=== PATIENT | female | born 1955 | race African-American/Black ===

== ENCOUNTER 2020-10-24 16:54 | Inpatient (IN) | payer OTHER ==
[~2020-10-24] VITALS: Ht 165.1 cm; Wt 66.7 kg
[2020-10-24 17:56] LABS: HEMATOCRIT. 39.9 % (36.0-48.0); HEMOGLOBIN. 11.9 g/dL (12.0-16.0); MEAN CORPUSCULAR HEMOGLOBIN 21.9 pg (28.0-32.0); MEAN CORPUSCULAR VOLUME 73.2 fL (81.0-99.0); PLATELET 412 x1000/uL (130-400); RED BLOOD CELL COUNT 5.46 mill/uL (4.2-5.4); RED CELL DISTRIBUTION WIDTH 15.4 % (11.6-14.6)
[2020-10-24 18:04] LABS: CHLORIDE 114 mEq/L (98-107)
[2020-10-24] MEDS ORDERED: LEVOFLOXACIN 500MG PREMIX 100 ML IV ONE (18:15)
[2020-10-24 18:47] LABS: PLATELET ESTIMATE NORMAL
[2020-10-24 18:58] LABS: ETHANOL BLOOD < 10 mg/dL
[2020-10-24 19:00] LABS: BETA HYDROXYBUTYRATE 8.9 mMol/L (0.0-0.3)
[2020-10-24] MEDS ORDERED: KCL 10MEQ/50ML PREMIX 50 ML IV ONE (19:45)
[2020-10-24] MEDS ORDERED: SODIUM CHLORIDE 0.9% 1,000 ML IV STA (19:45)
[2020-10-24] MEDS ORDERED: INSULIN REGULAR (DRIP) 100 UNITS in SODIUM CHLORIDE 0.9% 100 ML IV ONE (19:45)
[2020-10-24 20:00] LABS: *AMPHETAMINES SCREEN URINE NEGATIVE (NEGATIVE); *BARBITURATES SCREEN URINE NEGATIVE (NEGATIVE); *BENZODIAZEPINES SCREEN URINE NEGATIVE (NEGATIVE); *COCAINE SCREEN URINE NEGATIVE (NEGATIVE); CANNABINOID URINE SCREEN NEGATIVE (NEGATIVE); METHADONE URINE SCREEN NEGATIVE (NEGATIVE); OPIATES URINE SCREEN NEGATIVE (NEGATIVE); PHENCYCLIDINE URINE SCREEN NEGATIVE (NEGATIVE)
[2020-10-24] MEDS ORDERED: VANCOMYCIN 1 G PREMIX 200 ML IV ONE (20:00)
[2020-10-24] MEDS ORDERED: DEXTROSE 50% WATER 50ML SYRINGE IV PRN (20:00)
[2020-10-24] MEDS: BLOOD SUGAR DIAGNOSTIC STRIP TEST SCH ×4 (20:46→23:00)
[2020-10-24 23:22] LABS: PHOSPHORUS 3.5 mg/dL (2.5-4.9)
[2020-10-25] VITALS (55 sets, daily range): BP systolic 110–196; BP diastolic 39–126
[2020-10-25] MEDS ORDERED: GUAIFENESIN 200MG/10ML SUGAR FREE UDC PO PRN
[2020-10-25] MEDS ORDERED: INSULIN REGULAR (DRIP) 100 UNITS in SODIUM CHLORIDE 0.9% 100 ML IV SCH
[2020-10-25] MEDS ORDERED: NA PHOS,M-B/NA PHOS,DI-BA ENEMA 118ML PR PRN
[2020-10-25] MEDS ORDERED: DIPHENHYDRAMINE 50MG/ML VIAL IV PRN
[2020-10-25] MEDS ORDERED: CLONIDINE 0.1MG TABLET PO PRN
[2020-10-25] MEDS ORDERED: ONDANSETRON HCL 4MG/2ML INJ IV PRN
[2020-10-25] MEDS ORDERED: MORPHINE SULFATE 2 MG/ML CPJ (NOT FOR IM USE) IV PRN
[2020-10-25] MEDS ORDERED: HYDROCODONE/ACETAMINOPHEN 5/325MG TABLET PO PRN
[2020-10-25] MEDS ORDERED: DOCUSATE SODIUM 100MG CAPSULE PO PRN
[2020-10-25] MEDS ORDERED: LORAZEPAM 2MG/ML CPJ IV PRN
[2020-10-25] MEDS ORDERED: MAGNESIUM/ALUMINUM HYDROXIDE/SIMETHICONE 30ML UDC PO PRN
[2020-10-25] MEDS ORDERED: NALOXONE HCL 0.4MG/ML VIAL IV PRN (00:30)
[2020-10-25] MEDS: BLOOD SUGAR DIAGNOSTIC STRIP TEST SCH ×15 (01:00→23:18)
[2020-10-25 01:22] LABS: PHOSPHORUS 2.9 mg/dL (2.5-4.9)
[2020-10-25 05:34] LABS: HEMATOCRIT. 37.7 % (36.0-48.0); HEMOGLOBIN. 11.8 g/dL (12.0-16.0); MEAN CORPUSCULAR HEMOGLOBIN 21.7 pg (28.0-32.0); MEAN CORPUSCULAR VOLUME 69.1 fL (81.0-99.0); MEAN PLATELET VOLUME 8.9 fl (7.4-10.4); PLATELET 347 x1000/uL (130-400); RED BLOOD CELL COUNT 5.45 mill/uL (4.2-5.4); RED CELL DISTRIBUTION WIDTH 14.9 % (11.6-14.6)
[2020-10-25 05:39] LABS: CHLORIDE 128 mEq/L (98-107)
[2020-10-25 05:46] LABS: LDL CHOLESTEROL 100 mg/dL (5-100)
[2020-10-25] MEDS: INSULIN REGULAR (DRIP) 100 UNITS in SODIUM CHLORIDE 0.9% 99 ML IV SCH ×2 (05:46→09:56)
[2020-10-25 05:48] LABS: T4 FREE 1.37 ng/dL (0.76-1.46)
[2020-10-25 05:50] LABS: HDL CHOLESTEROL 39 mg/dL (40-59)
[2020-10-25] MEDS: SODIUM CHLORIDE 0.45% 1,000 ML IV SCH ×3 (08:00→10:00)
[2020-10-25] MEDS: ASPIRIN 81MG EC TABLET PO SCH (08:35)
[2020-10-25 08:46] LABS: BG BASE EXCESS -3.3 mmol/L (-2.0-2.0); BG CARBOXYHEMOGLOBIN 0.3 % (0.5-1.5); BG DEOXYHEMOGLOBIN 8.7 % (0.0-5.0); BG FRACTION INSPIRED OXYGEN 100; BG HCO3 ACT 19.8 mmol/L (22.0-26.0); BG METHEMOGLOBIN 0.2 % (0.0-1.5); BG OXYGEN SATURATION 91.3 % (92.0-98.5); BG OXYHEMOGLOBIN 90.8 % (94.0-97.0); BG PCO2 30.2 mmHg (35.0-45.0); BG PH 7.434 (7.350-7.450); BG PO2 59.4 mmHg (75.0-100.0); BG SAMPLE SITE RIGHT RADIAL; BG TOTAL HEMOGLOBIN 13.4 g/dL (12.0-18.0); BG VENT MODE MASK - NRB
[2020-10-25] MEDS: ENOXAPARIN 30MG/0.3ML SYR SUBCUT SCH (09:59)
[2020-10-25 11:10] LABS: CREATINE KINASE 186 IU/L (26-192)
[2020-10-25 11:11] LABS: CREATINE KINASE MB FRACTION < 1.0 ng/mL (0.5-3.6)
[2020-10-25] MEDS ORDERED: INSU100I28 SQ (12:42)
[2020-10-25] MEDS ORDERED: SIMV5TAB58 PO (12:43)
[2020-10-25] MEDS ORDERED: DEXT 5%/0.45% NACL 1000ML 1,000 ML IV SCH (13:00)
[2020-10-25] MEDS: HYDRALAZINE 20MG/ML VIAL IV PRN (13:40)
[2020-10-25] MEDS: INSULIN GLARGINE UD 100 UNITS/ML SYR SUBCUT SCH (14:59)
[2020-10-25] MEDS ORDERED: BLOOD SUGAR DIAGNOSTIC STRIP TEST SCH (16:30)
[2020-10-25] MEDS ORDERED: METOPROLOL TARTRATE 5MG/5ML VIAL IV NR (16:30)
[2020-10-25] MEDS ORDERED: INSULIN LISPRO 100 UNITS/ML SUBCUT SCH (17:00)
[2020-10-25] MEDS: DEXAMETHASONE 10 MG/ML VIAL IV SCH (17:06)
[2020-10-25 17:12] LABS: PLATELET ESTIMATE NORMAL
[2020-10-25 17:32] LABS: BG CARBOXYHEMOGLOBIN 0.3 % (0.5-1.5); BG DEOXYHEMOGLOBIN 6.6 % (0.0-5.0); BG FRACTION INSPIRED OXYGEN 100; BG METHEMOGLOBIN 0.2 % (0.0-1.5); BG OXYGEN SATURATION 93.4 % (92.0-98.5); BG OXYHEMOGLOBIN 92.9 % (94.0-97.0); BG PCO2 30.7 mmHg (35.0-45.0); BG PH 7.307 (7.350-7.450); BG PO2 72.9 mmHg (75.0-100.0); BG SAMPLE SITE RIGHT BRACHIAL; BG TOTAL HEMOGLOBIN 13.1 g/dL (12.0-18.0); BG TOTAL RESPIRATORY RATE 40 b/min; BG VENT MODE MASK - BIPAP
[2020-10-25] MEDS ORDERED: LEVOFLOXACIN 250MG PREMIX 50 ML IV SCH (18:00)
[2020-10-25] MEDS ORDERED: SODIUM BICARBONATE 8.4% 1 MEQ/ML 50ML SYR IV NR (18:09)
[2020-10-25] MEDS: PIPERACILLIN/TAZOBACTAM 2.25 G in DEXTROSE 5% WATER 50 ML IV SCH ×2 (18:18→23:20)
[2020-10-25 18:28] LABS: INR 1.1; PROTHROMBIN TIME 11.6 sec (9.6-11.0)
[2020-10-25 18:33] LABS: D-DIMER > 35.20 mg/L FEU (<0.50)
[2020-10-25] MEDS ORDERED: SODIUM CHLORIDE 0.45% 1,000 ML IV SCH (19:00)
[2020-10-25 19:20] LABS: CLARITY URINE CLOUDY (CLEAR); COLOR URINE YELLOW (YELLOW); KETONES URINE NEGATIVE (NEGATIVE); LEUKOCYTE ESTERASE URINE NEGATIVE (NEGATIVE); NITRITE URINE NEGATIVE (NEGATIVE); OCCULT BLOOD URINE 2+ (NEGATIVE); PROTEIN URINE 2+ (NEGATIVE); SPECIFIC GRAVITY URINE 1.019 (1.005-1.030); UROBILINOGEN URINE 0.2 E.U./dL (0.2-1.0)
[2020-10-25] MEDS: INSULIN LISPRO 100 UNITS/ML SUBCUT SCH ×2 (19:53→23:21)
[2020-10-25] MEDS ORDERED: VANCOMYCIN 500 MG PREMIX 100 ML IV SCH (20:00)
[2020-10-25 20:40] LABS: HEPATITIS B SURFACE ANTIGEN NEGATIVE
[2020-10-25] MEDS ORDERED: SODIUM BICARBONATE 100 MEQ in DEXTROSE 5% WATER 1,000 ML IV SCH (21:30)
[2020-10-26] VITALS (74 sets, daily range): BP systolic 88–175; BP diastolic 54–109
[2020-10-26] MEDS ORDERED: VANCOMYCIN 500 MG PREMIX 100 ML IV NR (01:00)
[2020-10-26] MEDS: BLOOD SUGAR DIAGNOSTIC STRIP TEST SCH ×6 (03:47→23:28)
[2020-10-26] MEDS: INSULIN LISPRO 100 UNITS/ML SUBCUT SCH ×6 (03:50→23:26)
[2020-10-26] MEDS: PIPERACILLIN/TAZOBACTAM 2.25 G in DEXTROSE 5% WATER 50 ML IV SCH ×4 (05:08→23:25)
[2020-10-26 06:50] LABS: HEMATOCRIT. 35.4 % (36.0-48.0); HEMOGLOBIN. 11.1 g/dL (12.0-16.0); MEAN CORPUSCULAR HEMOGLOBIN 21.5 pg (28.0-32.0); MEAN CORPUSCULAR VOLUME 68.9 fL (81.0-99.0); RED BLOOD CELL COUNT 5.14 mill/uL (4.2-5.4); RED CELL DISTRIBUTION WIDTH 14.4 % (11.6-14.6)
[2020-10-26] MEDS: DEXAMETHASONE 10 MG/ML VIAL IV SCH (09:33)
[2020-10-26] MEDS: ENOXAPARIN 30MG/0.3ML SYR SUBCUT SCH (09:33)
[2020-10-26] MEDS: DEXTROSE 5% WATER 1,000 ML IV SCH ×2 (09:34→23:28)
[2020-10-26] MEDS: ASPIRIN 81MG EC TABLET PO SCH (09:58)
[2020-10-26] MEDS: INSULIN GLARGINE UD 100 UNITS/ML SYR SUBCUT SCH ×2 (09:59→23:26)
[2020-10-26 12:14] LABS: BG CARBOXYHEMOGLOBIN 0.3 % (0.5-1.5); BG DEOXYHEMOGLOBIN 1.4 % (0.0-5.0); BG FRACTION INSPIRED OXYGEN 100; BG HCO3 ACT 23.5 mmol/L (22.0-26.0); BG METHEMOGLOBIN 0.1 % (0.0-1.5); BG OXYGEN SATURATION 98.6 % (92.0-98.5); BG OXYHEMOGLOBIN 98.2 % (94.0-97.0); BG PCO2 30.5 mmHg (35.0-45.0); BG PH 7.504 (7.350-7.450); BG PO2 148.5 mmHg (75.0-100.0); BG SAMPLE SITE RIGHT RADIAL; BG VENT MODE MASK - BIPAP
[2020-10-26 14:05] LABS: PLATELET ESTIMATE NORMAL
[2020-10-26 14:06] LABS: MEAN PLATELET VOLUME 9.7 fl (7.4-10.4); PLATELET 267 x1000/uL (130-400)
[2020-10-26] MEDS ORDERED: IOHEXOL-350 100 ML BOTTLE ONE (22:52)
[2020-10-27] VITALS (64 sets, daily range): BP systolic 109–172; BP diastolic 49–107
[2020-10-27] MEDS ORDERED: ENOXAPARIN 30MG/0.3ML SYR SUBCUT NR
[2020-10-27] MEDS: INSULIN LISPRO 100 UNITS/ML SUBCUT SCH ×5 (04:16→20:56)
[2020-10-27] MEDS: BLOOD SUGAR DIAGNOSTIC STRIP TEST SCH ×5 (04:16→20:46)
[2020-10-27 05:36] LABS: HEMATOCRIT. 33.6 % (36.0-48.0); HEMOGLOBIN. 10.5 g/dL (12.0-16.0); MEAN CORPUSCULAR HEMOGLOBIN 21.6 pg (28.0-32.0); MEAN PLATELET VOLUME 10.5 fl (7.4-10.4); PLATELET 228 x1000/uL (130-400); RED BLOOD CELL COUNT 4.86 mill/uL (4.2-5.4); RED CELL DISTRIBUTION WIDTH 14.7 % (11.6-14.6)
[2020-10-27 05:45] LABS: PHOSPHORUS 2.2 mg/dL (2.5-4.9)
[2020-10-27] MEDS: PIPERACILLIN/TAZOBACTAM 2.25 G in DEXTROSE 5% WATER 50 ML IV SCH ×3 (05:58→17:02)
[2020-10-27] MEDS ORDERED: VANCOMYCIN 750 MG PREMIX 150 ML IV NR (06:00)
[2020-10-27] MEDS: ENOXAPARIN 60MG/0.6ML SYR SUBCUT SCH (08:14)
[2020-10-27] MEDS: DEXAMETHASONE 10 MG/ML VIAL IV SCH (08:14)
[2020-10-27] MEDS: ASPIRIN 81MG EC TABLET PO SCH (08:14)
[2020-10-27 08:41] LABS: BG BASE EXCESS 1.7 mmol/L (-2.0-2.0); BG CARBOXYHEMOGLOBIN 0.3 % (0.5-1.5); BG DEOXYHEMOGLOBIN 9.6 % (0.0-5.0); BG FRACTION INSPIRED OXYGEN 100; BG HCO3 ACT 25.3 mmol/L (22.0-26.0); BG METHEMOGLOBIN 0.1 % (0.0-1.5); BG OXYGEN SATURATION 90.4 % (92.0-98.5); BG PCO2 36.1 mmHg (35.0-45.0); BG PH 7.463 (7.350-7.450); BG PO2 56.2 mmHg (75.0-100.0); BG SAMPLE SITE RIGHT BRACHIAL; BG TOTAL HEMOGLOBIN 11.5 g/dL (12.0-18.0); BG VENT MODE MASK - NRB
[2020-10-27] MEDS ORDERED: POTASSIUM PHOS,M-BASIC-D-BASIC 20 MMOL in DEXT 5% WATER 243.3333 ML IV SCH (09:00)
[2020-10-27] MEDS: INSULIN GLARGINE UD 100 UNITS/ML SYR SUBCUT SCH ×2 (10:01→22:50)
[2020-10-27] MEDS: DEXTROSE 5% WATER 1,000 ML IV SCH (11:53)
[2020-10-27] MEDS: LACTULOSE 20G/30ML UDC PO SCH ×2 (12:55→22:49)
[2020-10-27 20:15] LABS: PLATELET ESTIMATE NORMAL
[2020-10-28] VITALS (40 sets, daily range): BP systolic 109–157; BP diastolic 52–86
[2020-10-28] MEDS: BLOOD SUGAR DIAGNOSTIC STRIP TEST SCH ×6 (00:20→20:39)
[2020-10-28] MEDS: INSULIN LISPRO 100 UNITS/ML SUBCUT SCH ×6 (00:32→21:10)
[2020-10-28] MEDS: PIPERACILLIN/TAZOBACTAM 2.25 G in DEXTROSE 5% WATER 50 ML IV SCH ×4 (00:32→18:06)
[2020-10-28] MEDS: DEXTROSE 5% WATER 1,000 ML IV SCH ×3 (00:41→21:09)
[2020-10-28 06:03] LABS: HEMATOCRIT. 33.9 % (36.0-48.0); HEMOGLOBIN. 10.6 g/dL (12.0-16.0); MEAN CORPUSCULAR HEMOGLOBIN 21.7 pg (28.0-32.0); MEAN PLATELET VOLUME 10.7 fl (7.4-10.4); PHOSPHORUS 2.5 mg/dL (2.5-4.9); PLATELET 208 x1000/uL (130-400); RED BLOOD CELL COUNT 4.91 mill/uL (4.2-5.4); RED CELL DISTRIBUTION WIDTH 14.4 % (11.6-14.6)
[2020-10-28 08:05] LABS: BG BASE EXCESS 2.8 mmol/L (-2.0-2.0); BG CARBOXYHEMOGLOBIN 0.3 % (0.5-1.5); BG DEOXYHEMOGLOBIN 5.2 % (0.0-5.0); BG HCO3 ACT 25.7 mmol/L (22.0-26.0); BG METHEMOGLOBIN 0.3 % (0.0-1.5); BG OXYGEN SATURATION 94.8 % (92.0-98.5); BG OXYHEMOGLOBIN 94.2 % (94.0-97.0); BG PCO2 33.7 mmHg (35.0-45.0); BG PH 7.501 (7.350-7.450); BG PO2 66.8 mmHg (75.0-100.0); BG SAMPLE SITE RIGHT RADIAL; BG VENT MODE MASK - NRB
[2020-10-28 08:54] LABS: PLATELET ESTIMATE NORMAL
[2020-10-28] MEDS: LACTULOSE 20G/30ML UDC PO SCH ×2 (09:00→21:09)
[2020-10-28] MEDS: ASPIRIN 81MG EC TABLET PO SCH (09:16)
[2020-10-28] MEDS: ENOXAPARIN 60MG/0.6ML SYR SUBCUT SCH (09:16)
[2020-10-28] MEDS: DEXAMETHASONE 10 MG/ML VIAL IV SCH (09:16)
[2020-10-28] MEDS: INSULIN GLARGINE UD 100 UNITS/ML SYR SUBCUT SCH ×2 (09:17→21:09)
[2020-10-28] MEDS: VANCOMYCIN 750 MG PREMIX 150 ML IV SCH (09:37)
[2020-10-28] MEDS ORDERED: DESMOPRESSIN ACETATE IVPB 2 MCG in SODIUM CHLORIDE 0.9% 50 ML IV ONE (11:45)
[2020-10-28] MEDS ORDERED: DESMOPRESSIN ACETATE 4MCG/ML AMP IV NR (14:00)
[2020-10-28] MEDS: IPRATROPIUM/ALBUTEROL 0.5-3(2.5)MG/3ML NEB HHN SCH ×2 (15:11→21:20)
[2020-10-29] VITALS (48 sets, daily range): BP systolic 87–157; BP diastolic 39–89
[2020-10-29] MEDS: PIPERACILLIN/TAZOBACTAM 2.25 G in DEXTROSE 5% WATER 50 ML IV SCH ×4 (00:13→18:34)
[2020-10-29] MEDS: INSULIN LISPRO 100 UNITS/ML SUBCUT SCH ×6 (00:14→21:04)
[2020-10-29] MEDS: IPRATROPIUM/ALBUTEROL 0.5-3(2.5)MG/3ML NEB HHN SCH ×5 (01:55→20:26)
[2020-10-29] MEDS: BLOOD SUGAR DIAGNOSTIC STRIP TEST SCH ×6 (04:00→20:57)
[2020-10-29 05:49] LABS: HEMATOCRIT. 31.7 % (36.0-48.0); HEMOGLOBIN. 9.7 g/dL (12.0-16.0); MEAN CORPUSCULAR HEMOGLOBIN 21.1 pg (28.0-32.0); MEAN CORPUSCULAR VOLUME 69.2 fL (81.0-99.0); MEAN PLATELET VOLUME 10.6 fl (7.4-10.4); PLATELET 172 x1000/uL (130-400); RED BLOOD CELL COUNT 4.58 mill/uL (4.2-5.4); RED CELL DISTRIBUTION WIDTH 14.4 % (11.6-14.6)
[2020-10-29] MEDS: DEXTROSE 5% WATER 1,000 ML IV SCH ×3 (07:26→20:27)
[2020-10-29] MEDS: ASPIRIN 81MG EC TABLET PO SCH (08:05)
[2020-10-29] MEDS: DEXAMETHASONE 10 MG/ML VIAL IV SCH (08:05)
[2020-10-29] MEDS: ENOXAPARIN 60MG/0.6ML SYR SUBCUT SCH (08:05)
[2020-10-29] MEDS: LACTULOSE 20G/30ML UDC PO SCH ×2 (08:06→20:57)
[2020-10-29] MEDS ORDERED: POTASSIUM CHLORIDE 20MEQ TABLET SR PO NR (09:45)
[2020-10-29 09:50] LABS: BG BASE EXCESS 1.4 mmol/L (-2.0-2.0); BG FRACTION INSPIRED OXYGEN 100; BG PCO2 36.4 mmHg (35.0-45.0); BG PH 7.455 (7.350-7.450); BG PO2 105.2 mmHg (75.0-100.0); BG SAMPLE SITE RIGHT RADIAL; BG VENT MODE MASK - NRB
[2020-10-29] MEDS: VANCOMYCIN 750 MG PREMIX 150 ML IV SCH (10:02)
[2020-10-29] MEDS: INSULIN GLARGINE UD 100 UNITS/ML SYR SUBCUT SCH ×2 (10:03→22:07)
[2020-10-29] MEDS ORDERED: INSULIN GLARGINE UD 100 UNITS/ML SYR SUBCUT NR (14:30)
[2020-10-29 22:42] LABS: PLATELET ESTIMATE NORMAL
[2020-10-30] VITALS (47 sets, daily range): BP systolic 83–155; BP diastolic 28–97
[2020-10-30] MEDS: BLOOD SUGAR DIAGNOSTIC STRIP TEST SCH ×6 (00:24→20:00)
[2020-10-30] MEDS: PIPERACILLIN/TAZOBACTAM 2.25 G in DEXTROSE 5% WATER 50 ML IV SCH ×3 (00:35→12:35)
[2020-10-30] MEDS: INSULIN LISPRO 100 UNITS/ML SUBCUT SCH ×6 (00:36→21:28)
[2020-10-30] MEDS: IPRATROPIUM/ALBUTEROL 0.5-3(2.5)MG/3ML NEB HHN SCH ×4 (00:43→18:00)
[2020-10-30] MEDS: DEXTROSE 5% WATER 1,000 ML IV SCH ×2 (03:03→16:14)
[2020-10-30] MEDS: IVERMECTIN 3 MG TABLET PO SCH (04:35)
[2020-10-30 06:17] LABS: HEMATOCRIT. 28.9 % (36.0-48.0); HEMOGLOBIN. 9.1 g/dL (12.0-16.0); MEAN CORPUSCULAR HEMOGLOBIN 21.7 pg (28.0-32.0); MEAN CORPUSCULAR VOLUME 68.8 fL (81.0-99.0); MEAN PLATELET VOLUME 10.6 fl (7.4-10.4); PHOSPHORUS 2.6 mg/dL (2.5-4.9); PLATELET 140 x1000/uL (130-400); RED CELL DISTRIBUTION WIDTH 14.3 % (11.6-14.6)
[2020-10-30 07:36] LABS: BG BASE EXCESS 2.6 mmol/L (-2.0-2.0); BG CARBOXYHEMOGLOBIN 0.3 % (0.5-1.5); BG DEOXYHEMOGLOBIN 9.9 % (0.0-5.0); BG HCO3 ACT 25.4 mmol/L (22.0-26.0); BG METHEMOGLOBIN 0.2 % (0.0-1.5); BG OXYGEN SATURATION 90.1 % (92.0-98.5); BG OXYHEMOGLOBIN 89.6 % (94.0-97.0); BG PCO2 32.6 mmHg (35.0-45.0); BG PH 7.509 (7.350-7.450); BG PO2 51.2 mmHg (75.0-100.0); BG SAMPLE SITE RIGHT RADIAL; BG TOTAL HEMOGLOBIN 10.7 g/dL (12.0-18.0); BG VENT MODE MASK - NRB
[2020-10-30] MEDS: LACTULOSE 20G/30ML UDC PO SCH ×2 (08:30→21:00)
[2020-10-30] MEDS: DEXAMETHASONE 10 MG/ML VIAL IV SCH (08:30)
[2020-10-30] MEDS: ENOXAPARIN 60MG/0.6ML SYR SUBCUT SCH (08:31)
[2020-10-30] MEDS: ASPIRIN 81MG EC TABLET PO SCH (08:31)
[2020-10-30] MEDS: VANCOMYCIN 750 MG PREMIX 150 ML IV SCH (10:24)
[2020-10-30] MEDS: INSULIN GLARGINE UD 100 UNITS/ML SYR SUBCUT SCH ×2 (10:25→21:28)
[2020-10-30 11:02] LABS: PLATELET ESTIMATE NORMAL
[2020-10-30] MEDS ORDERED: FUROSEMIDE 40MG/4ML VIAL IVP NR (16:15)
[2020-10-31] VITALS (44 sets, daily range): BP systolic 81–154; BP diastolic 25–91
[2020-10-31] MEDS: BLOOD SUGAR DIAGNOSTIC STRIP TEST SCH ×6 (00:08→20:26)
[2020-10-31] MEDS: IPRATROPIUM/ALBUTEROL 0.5-3(2.5)MG/3ML NEB HHN SCH ×3 (01:12→20:26)
[2020-10-31] MEDS: INSULIN LISPRO 100 UNITS/ML SUBCUT SCH ×6 (04:00→20:25)
[2020-10-31 05:48] LABS: HEMOGLOBIN. 9.1 g/dL (12.0-16.0); MEAN CORPUSCULAR HEMOGLOBIN 21.5 pg (28.0-32.0); MEAN CORPUSCULAR VOLUME 68.3 fL (81.0-99.0); MEAN PLATELET VOLUME 11.5 fl (7.4-10.4); PLATELET 150 x1000/uL (130-400); RED BLOOD CELL COUNT 4.24 mill/uL (4.2-5.4); RED CELL DISTRIBUTION WIDTH 14.3 % (11.6-14.6)
[2020-10-31 07:46] LABS: BG BASE EXCESS 2.3 mmol/L (-2.0-2.0); BG CARBOXYHEMOGLOBIN 0.3 % (0.5-1.5); BG DEOXYHEMOGLOBIN 5.9 % (0.0-5.0); BG HCO3 ACT 24.9 mmol/L (22.0-26.0); BG METHEMOGLOBIN 0.3 % (0.0-1.5); BG OXYGEN SATURATION 94.1 % (92.0-98.5); BG OXYHEMOGLOBIN 93.5 % (94.0-97.0); BG PCO2 31.2 mmHg (35.0-45.0); BG PO2 63.5 mmHg (75.0-100.0); BG SAMPLE SITE RIGHT RADIAL; BG TOTAL HEMOGLOBIN 9.4 g/dL (12.0-18.0); BG VENT MODE MASK - NRB
[2020-10-31] MEDS: ASPIRIN 81MG EC TABLET PO SCH (08:09)
[2020-10-31] MEDS: DEXAMETHASONE 10 MG/ML VIAL IV SCH (08:09)
[2020-10-31] MEDS: ENOXAPARIN 60MG/0.6ML SYR SUBCUT SCH (08:09)
[2020-10-31] MEDS: DEXTROSE 5% WATER 1,000 ML IV SCH (08:09)
[2020-10-31] MEDS: IVERMECTIN 3 MG TABLET PO SCH (08:09)
[2020-10-31] MEDS: ACETAMINOPHEN 325MG TABLET PO PRN (08:10)
[2020-10-31] MEDS: LACTULOSE 20G/30ML UDC PO SCH ×2 (08:10→21:17)
[2020-10-31] MEDS: INSULIN GLARGINE UD 100 UNITS/ML SYR SUBCUT SCH ×2 (09:44→21:16)
[2020-10-31 10:10] LABS: PLATELET ESTIMATE NORMAL
[2020-10-31] MEDS: MIDODRINE HCL 5MG TABLET PO SCH ×3 (10:18→16:18)
[2020-11-01] VITALS (45 sets, daily range): BP systolic 106–178; BP diastolic 55–83
[2020-11-01] MEDS: BLOOD SUGAR DIAGNOSTIC STRIP TEST SCH ×6 (00:24→20:00)
[2020-11-01] MEDS: INSULIN LISPRO 100 UNITS/ML SUBCUT SCH ×6 (00:24→20:00)
[2020-11-01] MEDS: DEXTROSE 5% WATER 1,000 ML IV SCH (04:17)
[2020-11-01 05:35] LABS: HEMATOCRIT. 27.3 % (36.0-48.0); HEMOGLOBIN. 8.6 g/dL (12.0-16.0); MEAN CORPUSCULAR HEMOGLOBIN 21.5 pg (28.0-32.0); MEAN CORPUSCULAR VOLUME 67.9 fL (81.0-99.0); PLATELET 171 x1000/uL (130-400); RED BLOOD CELL COUNT 4.03 mill/uL (4.2-5.4); RED CELL DISTRIBUTION WIDTH 13.8 % (11.6-14.6)
[2020-11-01] MEDS ORDERED: POTASSIUM CHLORIDE 20MEQ/PACKET PO NR (08:00)
[2020-11-01] MEDS: ASPIRIN 81MG EC TABLET PO SCH (08:39)
[2020-11-01] MEDS: LACTULOSE 20G/30ML UDC PO SCH ×2 (08:39→21:00)
[2020-11-01] MEDS: IVERMECTIN 3 MG TABLET PO SCH (08:40)
[2020-11-01] MEDS: DEXAMETHASONE 4MG/ML 1ML VIAL IV SCH (08:40)
[2020-11-01] MEDS: MIDODRINE HCL 5MG TABLET PO SCH ×3 (08:40→17:09)
[2020-11-01] MEDS: ENOXAPARIN 60MG/0.6ML SYR SUBCUT SCH (08:40)
[2020-11-01 09:19] LABS: PLATELET ESTIMATE NORMAL
[2020-11-01 09:24] LABS: BG BASE EXCESS 2.2 mmol/L (-2.0-2.0); BG CARBOXYHEMOGLOBIN 0.3 % (0.5-1.5); BG DEOXYHEMOGLOBIN 3.9 % (0.0-5.0); BG FRACTION INSPIRED OXYGEN 100; BG HCO3 ACT 25.7 mmol/L (22.0-26.0); BG METHEMOGLOBIN 0.3 % (0.0-1.5); BG OXYGEN SATURATION 96.1 % (92.0-98.5); BG OXYHEMOGLOBIN 95.5 % (94.0-97.0); BG PCO2 35.7 mmHg (35.0-45.0); BG PH 7.475 (7.350-7.450); BG PO2 74.5 mmHg (75.0-100.0); BG SAMPLE SITE RIGHT RADIAL; BG TOTAL HEMOGLOBIN 9.5 g/dL (12.0-18.0); BG VENT MODE MASK - NRB
[2020-11-01] MEDS: INSULIN GLARGINE UD 100 UNITS/ML SYR SUBCUT SCH ×2 (10:05→21:26)
[2020-11-01] MEDS: IPRATROPIUM/ALBUTEROL 0.5-3(2.5)MG/3ML NEB HHN SCH ×2 (10:29→16:28)
[2020-11-02] VITALS (41 sets, daily range): BP systolic 102–170; BP diastolic 47–87
[2020-11-02] MEDS: BLOOD SUGAR DIAGNOSTIC STRIP TEST SCH ×4 (00:28→11:55)
[2020-11-02] MEDS: INSULIN LISPRO 100 UNITS/ML SUBCUT SCH ×4 (04:00→11:56)
[2020-11-02 05:36] LABS: HEMATOCRIT. 28.9 % (36.0-48.0); HEMOGLOBIN. 9.1 g/dL (12.0-16.0); MEAN CORPUSCULAR HEMOGLOBIN 21.5 pg (28.0-32.0); MEAN CORPUSCULAR VOLUME 68.2 fL (81.0-99.0); MEAN PLATELET VOLUME 11.1 fl (7.4-10.4); PLATELET 218 x1000/uL (130-400); RED BLOOD CELL COUNT 4.24 mill/uL (4.2-5.4); RED CELL DISTRIBUTION WIDTH 14.1 % (11.6-14.6)
[2020-11-02 05:47] LABS: PHOSPHORUS 2.7 mg/dL (2.5-4.9)
[2020-11-02] MEDS: DEXTROSE 50% WATER 50ML SYRINGE IV PRN (07:59)
[2020-11-02] MEDS: ASPIRIN 81MG EC TABLET PO SCH (08:13)
[2020-11-02] MEDS: ENOXAPARIN 60MG/0.6ML SYR SUBCUT SCH (08:13)
[2020-11-02] MEDS: IVERMECTIN 3 MG TABLET PO SCH (08:13)
[2020-11-02] MEDS: DEXAMETHASONE 4MG/ML 1ML VIAL IV SCH (08:13)
[2020-11-02] MEDS: MIDODRINE HCL 5MG TABLET PO SCH (08:14)
[2020-11-02] MEDS: HYDRALAZINE 20MG/ML VIAL IV PRN (08:14)
[2020-11-02] MEDS: LACTULOSE 20G/30ML UDC PO SCH ×2 (08:14→20:39)
[2020-11-02] MEDS: INSULIN GLARGINE UD 100 UNITS/ML SYR SUBCUT SCH ×2 (09:54→21:21)
[2020-11-02 11:25] LABS: BG BASE EXCESS 2.8 mmol/L (-2.0-2.0); BG CARBOXYHEMOGLOBIN 0.3 % (0.5-1.5); BG DEOXYHEMOGLOBIN 12.7 % (0.0-5.0); BG FRACTION INSPIRED OXYGEN 100; BG HCO3 ACT 25.2 mmol/L (22.0-26.0); BG METHEMOGLOBIN 0.2 % (0.0-1.5); BG OXYGEN SATURATION 87.2 % (92.0-98.5); BG OXYHEMOGLOBIN 86.8 % (94.0-97.0); BG PCO2 31.4 mmHg (35.0-45.0); BG PH 7.523 (7.350-7.450); BG PO2 45.7 mmHg (75.0-100.0); BG SAMPLE SITE RIGHT RADIAL; BG TOTAL HEMOGLOBIN 11.4 g/dL (12.0-18.0); BG VENT MODE MASK - NRB
[2020-11-02 13:36] LABS: BG BASE EXCESS 3.5 mmol/L (-2.0-2.0); BG CARBOXYHEMOGLOBIN 0.3 % (0.5-1.5); BG DEOXYHEMOGLOBIN 3.5 % (0.0-5.0); BG METHEMOGLOBIN 0.3 % (0.0-1.5); BG OXYGEN SATURATION 96.5 % (92.0-98.5); BG OXYHEMOGLOBIN 95.9 % (94.0-97.0); BG PCO2 37.1 mmHg (35.0-45.0); BG PO2 82.2 mmHg (75.0-100.0); BG SAMPLE SITE RIGHT RADIAL; BG TOTAL HEMOGLOBIN 11.9 g/dL (12.0-18.0); BG VENT MODE MASK - BIPAP
[2020-11-02] MEDS: IPRATROPIUM/ALBUTEROL 0.5-3(2.5)MG/3ML NEB HHN SCH (15:55)
[2020-11-02 18:09] LABS: PLATELET ESTIMATE NORMAL
[2020-11-03] VITALS (53 sets, daily range): BP systolic 97–155; BP diastolic 52–91
[2020-11-03] MEDS: INSULIN LISPRO 100 UNITS/ML SUBCUT SCH ×4 (00:32→18:43)
[2020-11-03] MEDS: BLOOD SUGAR DIAGNOSTIC STRIP TEST SCH ×5 (00:34→23:41)
[2020-11-03 05:39] LABS: HEMATOCRIT. 29.3 % (36.0-48.0); HEMOGLOBIN. 9.1 g/dL (12.0-16.0); MEAN CORPUSCULAR HEMOGLOBIN 21.5 pg (28.0-32.0); MEAN CORPUSCULAR VOLUME 69.2 fL (81.0-99.0); MEAN PLATELET VOLUME 10.7 fl (7.4-10.4); PLATELET 223 x1000/uL (130-400); RED BLOOD CELL COUNT 4.23 mill/uL (4.2-5.4); RED CELL DISTRIBUTION WIDTH 14.2 % (11.6-14.6)
[2020-11-03 05:47] LABS: PHOSPHORUS 3.4 mg/dL (2.5-4.9)
[2020-11-03] MEDS: LACTULOSE 20G/30ML UDC PO SCH ×2 (08:04→20:38)
[2020-11-03] MEDS: ENOXAPARIN 60MG/0.6ML SYR SUBCUT SCH (08:10)
[2020-11-03] MEDS: IVERMECTIN 3 MG TABLET PO SCH (08:10)
[2020-11-03] MEDS: ASPIRIN 81MG EC TABLET PO SCH (08:10)
[2020-11-03] MEDS: DEXTROSE 5% WATER 1,000 ML IV SCH ×2 (08:10→22:09)
[2020-11-03] MEDS: DEXAMETHASONE 4MG/ML 1ML VIAL IV SCH (08:10)
[2020-11-03] MEDS: INSULIN GLARGINE UD 100 UNITS/ML SYR SUBCUT SCH ×2 (09:09→22:07)
[2020-11-03 09:58] LABS: PLATELET ESTIMATE NORMAL
[2020-11-03 13:17] LABS: BG BASE EXCESS 1.1 mmol/L (-2.0-2.0); BG DEOXYHEMOGLOBIN 2.7 % (0.0-5.0); BG FRACTION INSPIRED OXYGEN 80; BG HCO3 ACT 24.7 mmol/L (22.0-26.0); BG METHEMOGLOBIN 0.3 % (0.0-1.5); BG OXYGEN SATURATION 97.3 % (92.0-98.5); BG PCO2 35.4 mmHg (35.0-45.0); BG PH 7.462 (7.350-7.450); BG PO2 92.5 mmHg (75.0-100.0); BG SAMPLE SITE RIGHT RADIAL; BG TOTAL HEMOGLOBIN 9.5 g/dL (12.0-18.0); BG TOTAL RESPIRATORY RATE 20 b/min; BG VENT MODE MASK - BIPAP
[2020-11-03] MEDS: IPRATROPIUM/ALBUTEROL 0.5-3(2.5)MG/3ML NEB HHN SCH ×2 (14:40→20:35)
[2020-11-04] VITALS (67 sets, daily range): BP systolic 93–156; BP diastolic 46–88
[2020-11-04] MEDS: INSULIN LISPRO 100 UNITS/ML SUBCUT SCH ×5 (00:01→23:01)
[2020-11-04] MEDS: IPRATROPIUM/ALBUTEROL 0.5-3(2.5)MG/3ML NEB HHN SCH ×4 (00:53→20:26)
[2020-11-04 05:55] LABS: HEMATOCRIT. 27.2 % (36.0-48.0); HEMOGLOBIN. 8.5 g/dL (12.0-16.0); MEAN CORPUSCULAR HEMOGLOBIN 21.4 pg (28.0-32.0); MEAN CORPUSCULAR VOLUME 68.3 fL (81.0-99.0); MEAN PLATELET VOLUME 10.6 fl (7.4-10.4); PLATELET 256 x1000/uL (130-400); RED BLOOD CELL COUNT 3.98 mill/uL (4.2-5.4)
[2020-11-04] MEDS: BLOOD SUGAR DIAGNOSTIC STRIP TEST SCH ×4 (06:52→23:00)
[2020-11-04] MEDS: DEXAMETHASONE 4MG/ML 1ML VIAL IV SCH (08:59)
[2020-11-04] MEDS: ASPIRIN 81MG EC TABLET PO SCH (08:59)
[2020-11-04] MEDS: LACTULOSE 20G/30ML UDC PO SCH (09:00)
[2020-11-04] MEDS: ENOXAPARIN 60MG/0.6ML SYR SUBCUT SCH (09:00)
[2020-11-04 09:57] LABS: BG BASE EXCESS 0.9 mmol/L (-2.0-2.0); BG DEOXYHEMOGLOBIN 11.4 % (0.0-5.0); BG FRACTION INSPIRED OXYGEN 70; BG HCO3 ACT 22.8 mmol/L (22.0-26.0); BG METHEMOGLOBIN 0.2 % (0.0-1.5); BG OXYGEN SATURATION 88.6 % (92.0-98.5); BG OXYHEMOGLOBIN 88.4 % (94.0-97.0); BG PCO2 27.9 mmHg (35.0-45.0); BG PH 7.531 (7.350-7.450); BG PO2 51.1 mmHg (75.0-100.0); BG SAMPLE SITE RIGHT RADIAL; BG TOTAL HEMOGLOBIN 10.6 g/dL (12.0-18.0); BG VENT MODE MASK - BIPAP
[2020-11-04 11:14] LABS: PLATELET ESTIMATE NORMAL
[2020-11-04] MEDS: INSULIN GLARGINE UD 100 UNITS/ML SYR SUBCUT SCH ×2 (11:26→22:59)
[2020-11-04] MEDS: ACETAMINOPHEN 325MG TABLET PO PRN (12:53)
[2020-11-04] MEDS: DEXTROSE 5% WATER 1,000 ML IV SCH ×2 (15:50→18:54)
[2020-11-04] MEDS: METHYLPREDNISOLONE SOD SUCC 40 MG/ML VIAL IV SCH ×2 (16:33→22:58)
[2020-11-04 16:54] LABS: CLARITY URINE TURBID (CLEAR); COLOR URINE YELLOW (YELLOW); KETONES URINE NEGATIVE (NEGATIVE); LEUKOCYTE ESTERASE URINE 3+ (NEGATIVE); NITRITE URINE NEGATIVE (NEGATIVE); OCCULT BLOOD URINE 3+ (NEGATIVE); PH URINE 5.5 (4.5-8.0); PROTEIN URINE 2+ (NEGATIVE); SPECIFIC GRAVITY URINE 1.018 (1.005-1.030); UROBILINOGEN URINE 0.2 E.U./dL (0.2-1.0)
[2020-11-04] MEDS: CEFEPIME 1,000 MG in DEXTROSE 5% WATER 50 ML IV SCH ×2 (17:19→23:00)
[2020-11-05] VITALS (84 sets, daily range): BP systolic 75–200; BP diastolic 24–129
[2020-11-05] MEDS: IPRATROPIUM/ALBUTEROL 0.5-3(2.5)MG/3ML NEB HHN SCH ×4 (01:26→20:04)
[2020-11-05 05:24] LABS: HEMATOCRIT. 26.5 % (36.0-48.0); HEMOGLOBIN. 8.4 g/dL (12.0-16.0); MEAN CORPUSCULAR HEMOGLOBIN 21.4 pg (28.0-32.0); MEAN CORPUSCULAR VOLUME 67.9 fL (81.0-99.0); MEAN PLATELET VOLUME 10.5 fl (7.4-10.4); PLATELET 214 x1000/uL (130-400); RED CELL DISTRIBUTION WIDTH 14.1 % (11.6-14.6)
[2020-11-05] MEDS: BLOOD SUGAR DIAGNOSTIC STRIP TEST SCH ×3 (05:38→17:45)
[2020-11-05] MEDS: METHYLPREDNISOLONE SOD SUCC 40 MG/ML VIAL IV SCH ×3 (05:41→21:31)
[2020-11-05] MEDS: INSULIN LISPRO 100 UNITS/ML SUBCUT SCH ×3 (05:42→17:46)
[2020-11-05] MEDS: HYDRALAZINE 20MG/ML VIAL IV PRN (07:40)
[2020-11-05 07:47] LABS: BG BASE EXCESS -2.4 mmol/L (-2.0-2.0); BG CARBOXYHEMOGLOBIN 0.2 % (0.5-1.5); BG DEOXYHEMOGLOBIN 9.9 % (0.0-5.0); BG HCO3 ACT 21.7 mmol/L (22.0-26.0); BG METHEMOGLOBIN 0.2 % (0.0-1.5); BG OXYGEN SATURATION 90.1 % (92.0-98.5); BG OXYHEMOGLOBIN 89.7 % (94.0-97.0); BG PCO2 34.8 mmHg (35.0-45.0); BG PH 7.412 (7.350-7.450); BG PO2 57.1 mmHg (75.0-100.0); BG TOTAL HEMOGLOBIN 10.4 g/dL (12.0-18.0)
[2020-11-05] MEDS: CEFEPIME 1,000 MG in DEXTROSE 5% WATER 50 ML IV SCH ×3 (07:59→23:32)
[2020-11-05] MEDS: ENOXAPARIN 60MG/0.6ML SYR SUBCUT SCH (08:00)
[2020-11-05] MEDS: ASPIRIN 81MG EC TABLET PO SCH (08:00)
[2020-11-05] MEDS: DEXTROSE 5% WATER 1,000 ML IV SCH (08:01)
[2020-11-05] MEDS ORDERED: ETOMIDATE 2MG/ML 10ML VIAL IV ONE (08:18)
[2020-11-05] MEDS ORDERED: SODIUM CHLORIDE 0.9% 10ML VIAL ONE (08:18)
[2020-11-05] MEDS ORDERED: SUCCINYLCHOLINE CHLORIDE 200MG/10ML IV ONE (08:18)
[2020-11-05] MEDS ORDERED: MIDAZOLAM 100MG/100ML PMX 100 ML IV PRN (08:45)
[2020-11-05] MEDS ORDERED: LORAZEPAM 2MG/ML CPJ IV SCH (08:45)
[2020-11-05] MEDS: FUROSEMIDE 40MG/4ML VIAL IVP SCH ×2 (08:55→15:43)
[2020-11-05] MEDS: MIDAZOLAM HCL 100 MG in SODIUM CHLORIDE 0.9% 80 ML IV PRN ×2 (09:20→23:12)
[2020-11-05] MEDS: INSULIN GLARGINE UD 100 UNITS/ML SYR SUBCUT SCH ×2 (09:28→21:30)
[2020-11-05] MEDS ORDERED: FENTANYL CITRATE/PF 500 MCG in SODIUM CHLORIDE 0.9% 40 ML IV PRN (10:15)
[2020-11-05] MEDS: FENTANYL CITRATE 2,500 MCG in SODIUM CHLORIDE 0.9% 200 ML IV PRN (10:30)
[2020-11-05 10:45] LABS: BG CARBOXYHEMOGLOBIN 0.3 % (0.5-1.5); BG DEOXYHEMOGLOBIN 15.5 % (0.0-5.0); BG FRACTION INSPIRED OXYGEN 100; BG METHEMOGLOBIN 0.5 % (0.0-1.5); BG OXYGEN SATURATION 84.4 % (92.0-98.5); BG OXYHEMOGLOBIN 83.7 % (94.0-97.0); BG PCO2 56.4 mmHg (35.0-45.0); BG PH 7.145 (7.350-7.450); BG PO2 60.6 mmHg (75.0-100.0); BG SAMPLE SITE RIGHT RADIAL; BG TOTAL HEMOGLOBIN 10.9 g/dL (12.0-18.0); BG VENT MODE VENT - AC
[2020-11-05] MEDS ORDERED: SODIUM BICARBONATE 8.4% 1 MEQ/ML 50ML SYR IV NR (11:00)
[2020-11-05 12:02] LABS: PLATELET ESTIMATE NORMAL
[2020-11-05 12:45] LABS: BG BASE EXCESS -4.2 mmol/L (-2.0-2.0); BG CARBOXYHEMOGLOBIN 0.3 % (0.5-1.5); BG DEOXYHEMOGLOBIN 9.4 % (0.0-5.0); BG HCO3 ACT 23.5 mmol/L (22.0-26.0); BG OXYGEN SATURATION 90.6 % (92.0-98.5); BG OXYHEMOGLOBIN 90.3 % (94.0-97.0); BG PCO2 55.4 mmHg (35.0-45.0); BG PH 7.245 (7.350-7.450); BG PO2 65.6 mmHg (75.0-100.0); BG SAMPLE SITE RIGHT RADIAL; BG TOTAL HEMOGLOBIN 10.9 g/dL (12.0-18.0); BG VENT MODE VENT - AC
[2020-11-05] MEDS ORDERED: SODIUM BICARBONATE 8.4% 1 MEQ/ML 50ML SYR IV SCH (15:15)
[2020-11-05] MEDS: MICAFUNGIN 100 MG in SODIUM CHLORIDE 0.9% 100 ML IV SCH (15:39)
[2020-11-05] MEDS: NOREPINEPHRINE 8 MG in DEXT 5% WATER 242 ML IV PRN (15:58)
[2020-11-05 18:01] LABS: BG BASE EXCESS 2.3 mmol/L (-2.0-2.0); BG DEOXYHEMOGLOBIN 5.4 % (0.0-5.0); BG HCO3 ACT 28.8 mmol/L (22.0-26.0); BG METHEMOGLOBIN 0.3 % (0.0-1.5); BG OXYGEN SATURATION 94.6 % (92.0-98.5); BG OXYHEMOGLOBIN 94.3 % (94.0-97.0); BG PCO2 54.7 mmHg (35.0-45.0); BG SAMPLE SITE RIGHT RADIAL; BG TOTAL HEMOGLOBIN 10.6 g/dL (12.0-18.0); BG VENT MODE VENT - AC
[2020-11-06] VITALS (94 sets, daily range): BP systolic 65–164; BP diastolic 38–88
[2020-11-06] MEDS: BLOOD SUGAR DIAGNOSTIC STRIP TEST SCH ×5 (00:15→23:26)
[2020-11-06] MEDS: INSULIN LISPRO 100 UNITS/ML SUBCUT SCH ×5 (00:15→23:34)
[2020-11-06] MEDS: IPRATROPIUM/ALBUTEROL 0.5-3(2.5)MG/3ML NEB HHN SCH ×5 (02:06→20:23)
[2020-11-06] MEDS: FENTANYL CITRATE 2,500 MCG in SODIUM CHLORIDE 0.9% 200 ML IV PRN ×2 (02:40→15:07)
[2020-11-06 05:15] LABS: HEMATOCRIT. 25.5 % (36.0-48.0); HEMOGLOBIN. 7.8 g/dL (12.0-16.0); MEAN CORPUSCULAR HEMOGLOBIN 21.1 pg (28.0-32.0); MEAN CORPUSCULAR VOLUME 68.8 fL (81.0-99.0); MEAN PLATELET VOLUME 10.1 fl (7.4-10.4); PLATELET 204 x1000/uL (130-400); RED CELL DISTRIBUTION WIDTH 14.8 % (11.6-14.6)
[2020-11-06 05:31] LABS: PHOSPHORUS 7.1 mg/dL (2.5-4.9)
[2020-11-06] MEDS: DEXTROSE 50% WATER 50ML SYRINGE IV PRN ×2 (05:45→10:34)
[2020-11-06] MEDS: NOREPINEPHRINE 8 MG in DEXT 5% WATER 242 ML IV PRN (05:53)
[2020-11-06] MEDS: METHYLPREDNISOLONE SOD SUCC 40 MG/ML VIAL IV SCH ×3 (05:57→22:02)
[2020-11-06] MEDS: FUROSEMIDE 40MG/4ML VIAL IVP SCH (06:34)
[2020-11-06] MEDS: PANTOPRAZOLE SODIUM 40 MG/VIAL IV SCH (08:54)
[2020-11-06] MEDS: DOCUSATE SODIUM SUGAR FREE 100MG/10ML UDC NG SCH (08:54)
[2020-11-06] MEDS: ASPIRIN 81MG EC TABLET PO SCH (08:54)
[2020-11-06] MEDS: MIDAZOLAM HCL 100 MG in SODIUM CHLORIDE 0.9% 80 ML IV PRN ×2 (08:56→18:54)
[2020-11-06] MEDS: CEFEPIME 1,000 MG in DEXTROSE 5% WATER 50 ML IV SCH ×2 (08:57→21:04)
[2020-11-06] MEDS: ENOXAPARIN 60MG/0.6ML SYR SUBCUT SCH (08:57)
[2020-11-06] MEDS ORDERED: DEXT 5%/0.45% NACL 1000ML 1,000 ML IV SCH (09:15)
[2020-11-06 10:41] LABS: BG CARBOXYHEMOGLOBIN 0.4 % (0.5-1.5); BG DEOXYHEMOGLOBIN 0.9 % (0.0-5.0); BG FRACTION INSPIRED OXYGEN 100; BG HCO3 ACT 32.4 mmol/L (22.0-26.0); BG METHEMOGLOBIN 0.4 % (0.0-1.5); BG OXYGEN SATURATION 99.1 % (92.0-98.5); BG OXYHEMOGLOBIN 98.3 % (94.0-97.0); BG PH 7.358 (7.350-7.450); BG PO2 179.7 mmHg (75.0-100.0); BG SAMPLE SITE RIGHT BRACHIAL; BG TOTAL HEMOGLOBIN 8.6 g/dL (12.0-18.0); BG VENT MODE VENT - AC
[2020-11-06] MEDS: SODIUM POLYSTYRENE SULFONATE 15 G/60 ML BOT NG SCH (10:45)
[2020-11-06 12:30] LABS: PLATELET ESTIMATE NORMAL
[2020-11-06] MEDS: MICAFUNGIN 100 MG in SODIUM CHLORIDE 0.9% 100 ML IV SCH (15:05)
[2020-11-06] MEDS ORDERED: LACTULOSE 20G/30ML UDC PO PRN (21:00)
[2020-11-07] VITALS (97 sets, daily range): BP systolic 72–189; BP diastolic 43–83
[2020-11-07] MEDS: IPRATROPIUM/ALBUTEROL 0.5-3(2.5)MG/3ML NEB HHN SCH ×4 (02:31→20:06)
[2020-11-07 04:33] LABS: HEMATOCRIT. 22.8 % (36.0-48.0); HEMOGLOBIN. 7.2 g/dL (12.0-16.0); MEAN CORPUSCULAR VOLUME 69.7 fL (81.0-99.0); MEAN PLATELET VOLUME 9.8 fl (7.4-10.4); PLATELET 175 x1000/uL (130-400); RED BLOOD CELL COUNT 3.26 mill/uL (4.2-5.4); RED CELL DISTRIBUTION WIDTH 14.9 % (11.6-14.6)
[2020-11-07] MEDS: METHYLPREDNISOLONE SOD SUCC 40 MG/ML VIAL IV SCH ×3 (05:31→21:37)
[2020-11-07] MEDS: BLOOD SUGAR DIAGNOSTIC STRIP TEST SCH ×3 (06:00→17:47)
[2020-11-07] MEDS: INSULIN LISPRO 100 UNITS/ML SUBCUT SCH ×3 (06:00→17:47)
[2020-11-07] MEDS: FENTANYL CITRATE 2,500 MCG in SODIUM CHLORIDE 0.9% 200 ML IV PRN (06:37)
[2020-11-07] MEDS ORDERED: LACTULOSE 20G/30ML UDC PO NR (08:15)
[2020-11-07] MEDS ORDERED: DOPAMINE 400MG/250ML PREMIX 250 ML IV PRN (08:30)
[2020-11-07] MEDS: ASPIRIN 81MG EC TABLET PO SCH (08:47)
[2020-11-07] MEDS: ENOXAPARIN 60MG/0.6ML SYR SUBCUT SCH (08:47)
[2020-11-07] MEDS: CEFEPIME 1,000 MG in DEXTROSE 5% WATER 50 ML IV SCH ×2 (08:51→20:46)
[2020-11-07] MEDS: PANTOPRAZOLE SODIUM 40 MG/VIAL IV SCH (08:51)
[2020-11-07] MEDS: DOCUSATE SODIUM SUGAR FREE 100MG/10ML UDC NG SCH (08:51)
[2020-11-07] MEDS ORDERED: DEXTROSE 50% WATER 50ML SYRINGE IV NR (09:00)
[2020-11-07] MEDS ORDERED: INSULIN REGULAR (HUMULIN R) 300UNITS/3ML VIAL IV NR (09:00)
[2020-11-07] MEDS: SODIUM POLYSTYRENE SULFONATE 15 G/60 ML BOT NG SCH (09:08)
[2020-11-07 09:28] LABS: BG CARBOXYHEMOGLOBIN 0.1 % (0.5-1.5); BG DEOXYHEMOGLOBIN 1.9 % (0.0-5.0); BG FRACTION INSPIRED OXYGEN 70; BG METHEMOGLOBIN 0.3 % (0.0-1.5); BG OXYGEN SATURATION 98.1 % (92.0-98.5); BG OXYHEMOGLOBIN 97.7 % (94.0-97.0); BG PCO2 39.6 mmHg (35.0-45.0); BG PH 7.381 (7.350-7.450); BG PO2 112.8 mmHg (75.0-100.0); BG SAMPLE SITE RIGHT RADIAL; BG TOTAL HEMOGLOBIN 8.2 g/dL (12.0-18.0); BG VENT MODE VENT - AC
[2020-11-07] MEDS: DEXTROSE 5% WATER 1,000 ML IV SCH (09:51)
[2020-11-07] MEDS: METOCLOPRAMIDE HCL 10MG/2ML VIAL IV SCH ×2 (12:07→17:48)
[2020-11-07] MEDS: MICAFUNGIN 100 MG in SODIUM CHLORIDE 0.9% 100 ML IV SCH (12:07)
[2020-11-07 12:39] LABS: PLATELET ESTIMATE NORMAL
[2020-11-07 18:23] LABS: HEMATOCRIT 29.8 % (36.0-48.0); HEMOGLOBIN 9.6 g/dL (12.0-16.0)
[2020-11-08] VITALS (60 sets, daily range): BP systolic 0–142; BP diastolic 0–97
[2020-11-08] MEDS: BLOOD SUGAR DIAGNOSTIC STRIP TEST SCH ×3 (00:02→11:28)
[2020-11-08] MEDS: METOCLOPRAMIDE HCL 10MG/2ML VIAL IV SCH ×3 (00:02→11:28)
[2020-11-08] MEDS: INSULIN LISPRO 100 UNITS/ML SUBCUT SCH ×3 (00:10→12:24)
[2020-11-08] MEDS: IPRATROPIUM/ALBUTEROL 0.5-3(2.5)MG/3ML NEB HHN SCH ×2 (02:30→10:06)
[2020-11-08 05:37] LABS: HEMATOCRIT. 29.2 % (36.0-48.0); HEMOGLOBIN. 9.3 g/dL (12.0-16.0); MEAN CORPUSCULAR HEMOGLOBIN 22.9 pg (28.0-32.0); MEAN CORPUSCULAR VOLUME 72.1 fL (81.0-99.0); MEAN PLATELET VOLUME 10.1 fl (7.4-10.4); PLATELET 174 x1000/uL (130-400); RED BLOOD CELL COUNT 4.04 mill/uL (4.2-5.4); RED CELL DISTRIBUTION WIDTH 17.6 % (11.6-14.6)
[2020-11-08 06:00] LABS: INR 1.1; PROTHROMBIN TIME 11.3 sec (9.6-11.0)
[2020-11-08] MEDS: METHYLPREDNISOLONE SOD SUCC 40 MG/ML VIAL IV SCH ×2 (06:00→14:47)
[2020-11-08 09:17] LABS: BG BASE EXCESS -5.1 mmol/L (-2.0-2.0); BG CARBOXYHEMOGLOBIN 1.3 % (0.5-1.5); BG DEOXYHEMOGLOBIN 9.5 % (0.0-5.0); BG FRACTION INSPIRED OXYGEN 80; BG HCO3 ACT 20.3 mmol/L (22.0-26.0); BG METHEMOGLOBIN 0.3 % (0.0-1.5); BG OXYGEN SATURATION 90.3 % (92.0-98.5); BG OXYHEMOGLOBIN 88.9 % (94.0-97.0); BG PCO2 38.6 mmHg (35.0-45.0); BG PH 7.338 (7.350-7.450); BG PO2 56.4 mmHg (75.0-100.0); BG SAMPLE SITE LEFT RADIAL; BG TOTAL HEMOGLOBIN 10.7 g/dL (12.0-18.0); BG VENT MODE VENT - AC
[2020-11-08] MEDS: PANTOPRAZOLE SODIUM 40 MG/VIAL IV SCH (09:52)
[2020-11-08] MEDS: ASPIRIN 81MG EC TABLET PO SCH (09:52)
[2020-11-08] MEDS: DOCUSATE SODIUM SUGAR FREE 100MG/10ML UDC NG SCH (09:52)
[2020-11-08] MEDS: CEFEPIME 1,000 MG in DEXTROSE 5% WATER 50 ML IV SCH (09:53)
[2020-11-08] MEDS: ENOXAPARIN 60MG/0.6ML SYR SUBCUT SCH (09:54)
[2020-11-08] MEDS: DEXTROSE 5% WATER 1,000 ML IV SCH (09:55)
[2020-11-08] MEDS ORDERED: SODIUM POLYSTYRENE SULFONATE 15 G/60 ML BOT PO SCH (10:30)
[2020-11-08 12:31] LABS: PLATELET ESTIMATE NORMAL
[2020-11-08] MEDS: MICAFUNGIN 100 MG in SODIUM CHLORIDE 0.9% 100 ML IV SCH (14:48)
[2020-11-08] MEDS: FENTANYL CITRATE 2,500 MCG in SODIUM CHLORIDE 0.9% 200 ML IV PRN (14:50)
[2020-11-08] MEDS ORDERED: MORPHINE SULFATE 2 MG/ML CPJ (NOT FOR IM USE) IV NR (15:30)
[2020-11-09] MEDS ORDERED: CEFEPIME 1,000 MG in DEXTROSE 5% WATER 50 ML IV SCH (09:00)
== END 2020-11-08 16:03 | DRG 871 ==
LOC: ER 16:54 → CVICU 21:58 → ENRESERV 23:26 → MICUSO 23:59
PROVIDERS: ADMIT Internal Medicine; ATTEND Internal Medicine
PROC: 5A09457 Assistance with Respiratory Ventilation, 24-96 Consecutive Hours, Continuous Positive Airway Pressure (ICD-10-PCS; 2020-10-25)
PROC: 02HV33Z Insertion of Infusion Device into Superior Vena Cava, Percutaneous Approach (ICD-10-PCS; 2020-10-26)
PROC: B548ZZA Ultrasonography of Superior Vena Cava, Guidance (ICD-10-PCS; 2020-10-26)
PROC: 5A09457 Assistance with Respiratory Ventilation, 24-96 Consecutive Hours, Continuous Positive Airway Pressure (ICD-10-PCS; 2020-11-02)
PROC: 5A1945Z Respiratory Ventilation, 24-96 Consecutive Hours (ICD-10-PCS; principal; 2020-11-05)
PROC: 0BH17EZ Insertion of Endotracheal Airway into Trachea, Via Natural or Artificial Opening (ICD-10-PCS; 2020-11-05)
PROC: 30233N1 Transfusion of Nonautologous Red Blood Cells into Peripheral Vein, Percutaneous Approach (ICD-10-PCS; 2020-11-07)
DX: A41.89 Other specified sepsis (principal); E11.10 Type 2 diabetes mellitus with ketoacidosis without coma; G93.41 Metabolic encephalopathy; N17.0 Acute kidney failure with tubular necrosis; U07.1 COVID-19; J12.82 Pneumonia due to coronavirus disease 2019; J96.01 Acute respiratory failure with hypoxia; I26.99 Other pulmonary embolism without acute cor pulmonale; E87.0 Hyperosmolality and hypernatremia; I13.0 Hypertensive heart and chronic kidney disease with heart failure and stage 1 through stage 4 chronic kidney disease, or unspecified chronic kidney disease; B37.49 Other urogenital candidiasis; J93.83 Other pneumothorax; Z66 Do not resuscitate; E86.0 Dehydration; F32.9 Major depressive disorder, single episode, unspecified; I16.0 Hypertensive urgency; E86.1 Hypovolemia; R65.20 Severe sepsis without septic shock; E11.22 Type 2 diabetes mellitus with diabetic chronic kidney disease; R62.7 Adult failure to thrive; I25.10 Atherosclerotic heart disease of native coronary artery without angina pectoris; E11.65 Type 2 diabetes mellitus with hyperglycemia; G31.9 Degenerative disease of nervous system, unspecified; E87.6 Hypokalemia; R13.10 Dysphagia, unspecified; D64.9 Anemia, unspecified; I50.9 Heart failure, unspecified; N18.2 Chronic kidney disease, stage 2 (mild); Z86.16 Personal history of COVID-19; Z86.73 Personal history of transient ischemic attack (TIA), and cerebral infarction without residual deficits; Z68.24 Body mass index [BMI] 24.0-24.9, adult
CPT/HCPCS: 31500; 36415; 36600; 70551; 71045; 71275; 76937; 78580; 80048; 80053; 80061; 80202; 80305; 80320; 81003; 82010; 82140; 82375; 82550; 82553; 82728; 82805; 82962; 83036; 83605; 83615; 83735; 83880; 83935; 84100; 84145; 84295; 84439; 84443; 84484; 85014; 85018; 85025; 85379; 86140; 86850; 86900; 86920; 87077; 87106; 87186; 87426; 92610; 93005; 93306; 93970; 94002; 94003; 94640; 94660; 99291; A6261; C1725; C9113; J0330; J0360; J0692; J1100; J1265; J1650; J1815; J1940; J1956; J2060; J2248; J2250; J2270; J2543; J2597; J2765; J2920; J3010; J3370; J3480; J3490; J7030; J7040; J7050; J7060; J7070; P9016; Q9967; U0003; U0005; G0480